=== PATIENT | male | born 1995 | race Caucasian/White ===

== ENCOUNTER 2024-02-15 10:04 | Emergency (ER) | payer BC ==
[~2024-02-15] VITALS: Ht 165.1 cm; Wt 99.8 kg
[2024-02-15 10:09] VITALS: BP_SYST 147; PULSE 85; RESP 18; TEMP 98.3; O2SAT 98
[2024-02-15] MEDS ORDERED: METH-776 PO (12:36)
[2024-02-15 12:41] VITALS: BP_SYST 147; PULSE 85; RESP 18; TEMP 98.3; O2SAT 98
== END 2024-02-15 12:41 | disposition home or self-care (01) ==
LOC: SED 10:04
DX: M54.16 Radiculopathy, lumbar region (principal)
CPT/HCPCS: 72131; 99284